=== PATIENT | male | born 1960 | race African-American/Black ===

== ENCOUNTER 2016-11-24 18:36 | Emergency (ER) | payer MEDICAID ==
[~2016-11-24] VITALS: Ht 177.8 cm; Wt 83.9 kg
[2016-11-24] MEDS ORDERED: ONDA4TAB5 PO (19:21)
[2016-11-24] MEDS ORDERED: ATOR20TA PO (19:21)
[2016-11-24] MEDS ORDERED: METF500T4 PO (19:21)
[2016-11-24] MEDS ORDERED: METO-302 PO (19:21)
[2016-11-24] MEDS ORDERED: ASPI81TA31 PO (19:21)
[2016-11-24] MEDS ORDERED: AMLO5TAB4 PO (19:21)
[2016-11-24] MEDS ORDERED: HYDR-552 PO (19:21)
[2016-11-24] MEDS ORDERED: LISI-607 PO (19:21)
[2016-11-24] MEDS ORDERED: CARI350T PO (19:21)
[2016-11-24] MEDS ORDERED: IV NORMAL SALINE 1000 ML BAG IV ONE (19:30)
[2016-11-24 19:44] LABS: BASOPHILS % (AUTO) 0.9 % (0.0-2.0); CREATININE 1.1 mg/dL (0.6-1.3); EOSINOPHILS # (AUTO) 0.1 K/uL (0.0-0.7); EOSINOPHILS % (AUTO) 2.7 % (0.0-7.0); HEMATOCRIT 36.6 % (40-50); HEMOGLOBIN 12.4 G/DL (14.0-18.0); LYMPHOCYTES # (AUTO) 2.4 K/UL (0.8-4.8); LYMPHOCYTES % (AUTO) 59.5 % (20.5-51.5); MEAN CORPUSCULAR HEMOGLOBIN 31.5 UUG (27.0-31.0); MEAN CORPUSCULAR HGB CONC 34 g/dL (32.0-37.0); MEAN CORPUSCULAR VOLUME 93.3 FL (82.0-92.0); MONOCYTES # (AUTO) 0.3 K/UL (0.1-1.30); MONOCYTES % (AUTO) 6.9 % (0.0-11.0); NEUTROPHILS # (AUTO) 1.2 K/UL (1.8-8.9); PLATELET COUNT (AUTO) 130 K/UL (150-450); POTASSIUM 3.9 mmol/L (3.5-5.1); RED BLOOD CELL COUNT(AUTO) 3.92 MIL/UL (4.7-6.1)
--- NOTE | 2016-11-24 20:17 | NUR ---
Patient discharged to home in stable conditon. Written and verbal after care instructions given. Patient verbalizes understanding of instructions.
== END 2016-11-24 20:18 | disposition home or self-care (01) ==
LOC: ER 18:49
DX: E11.65 Type 2 diabetes mellitus with hyperglycemia (principal); D64.9 Anemia, unspecified; D69.6 Thrombocytopenia, unspecified; I10 Essential (primary) hypertension; E78.5 Hyperlipidemia, unspecified; F32.9 Major depressive disorder, single episode, unspecified; G89.29 Other chronic pain; I25.10 Atherosclerotic heart disease of native coronary artery without angina pectoris; Z79.82 Long term (current) use of aspirin
CPT/HCPCS: 36415; 85025; A4663; J7030

== ENCOUNTER 2017-08-14 13:36 | Emergency (ER) | payer MEDICAID, OTHER ==
[~2017-08-14] VITALS: Ht 177.8 cm; Wt 83.9 kg
[~2017-08-14 13:36] MED LIST: AMLO5TAB4 PO; ASPI81TA31 PO; ATOR20TA PO; CARI350T PO; HYDR-552 PO; LISI-607 PO; METF500T6 PO; METO-356 PO; ONDA4TAB5 PO
[2017-08-14] MEDS ORDERED: predniSONE 10 MG TABLET PO ONE (13:45)
[2017-08-14] MEDS ORDERED: ALBUTEROL SULFATE 2.5 MG/3 ML NEBU NEB ONE (13:45)
[2017-08-14] MEDS ORDERED: IPRATROPIUM BROMIDE 0.5 MG/2.5 ML NEBU NEB ONE (13:45)
[2017-08-14] MEDS ORDERED: predniSONE 10 MG TABLET ONE (13:49)
[2017-08-14] MEDS ORDERED: predniSONE 50 MG TABLET ONE (13:50)
[2017-08-14] MEDS ORDERED: IPRATROPIUM BROMIDE 0.5 MG/2.5 ML NEBU ONE (13:56)
[2017-08-14] MEDS ORDERED: ALBUTEROL SULFATE 2.5 MG/3 ML NEBU ONE (13:56)
--- NOTE | 2017-08-14 13:57 | NUR ---
Bacilio toth in ED - 08/14/17 at 1357 by SOURAV Patient discharged to home in stable conditon. Written and verbal after care instructions given. Patient verbalizes understanding of instructions.
[2017-08-14] MEDS ORDERED: ACET-2154 PO (14:04)
[2017-08-14] MEDS ORDERED: TIOT18CA3 INH (14:04)
[2017-08-14] MEDS ORDERED: CARV3.122 PO (14:04)
[2017-08-14] MEDS ORDERED: ALBU2.5V13 NEB (14:04)
[2017-08-14] MEDS ORDERED: GLIP10TA11 PO (14:04)
--- NOTE | 2017-08-14 14:28 | NUR ---
Patient discharged to home in stable conditon. Written and verbal after care instructions given. Patient verbalizes understanding of instructions.pt says feels better, breathing normally, walks in steady gait.
[2017-08-14 14:29] VITALS: BP 149/85
== END 2017-08-14 14:30 | disposition home or self-care (01) ==
LOC: ER 13:36
DX: J45.909 Unspecified asthma, uncomplicated (principal); E11.9 Type 2 diabetes mellitus without complications; E78.5 Hyperlipidemia, unspecified; I10 Essential (primary) hypertension; G89.29 Other chronic pain; M54.9 Dorsalgia, unspecified; Z79.82 Long term (current) use of aspirin; Z79.84 Long term (current) use of oral hypoglycemic drugs; Z79.891 Long term (current) use of opiate analgesic; Z79.899 Other long term (current) drug therapy
CPT/HCPCS: A4663; J3590; J7512